=== PATIENT | female | born 1955 | race Asian ===

== ENCOUNTER 2017-11-08 13:11 | Emergency (ER) | payer BC ==
[2017-11-08 13:35] VITALS: BP 116/75
--- NOTE | 2017-11-08 13:35 | UC ---
Cardiac HPI - HPI Summary HPI Summary: Patient to urgent care with c/o chest discomfort and heaviness also has fatigue and SOB- - History of Current Complaint Hx Obtained From: Patient Onset/Duration: Sudden Onset, Lasting Days - 2, Worse Since - this day Timing: Constant Initial Severity: Moderate Current Severity: Moderate Pain Intensity: 2 Chest Pain Location: Mid Sternal, Lower Sternal Character: Tightness, Heaviness Aggravating Factor(s): Other - stress Alleviating Factor(s): Nothing Associated Signs & Symptoms: Positive: Chest Pain, Recent Stress, SOB <Karlee Padgett - Last Filed: 11/21/17 19:07> <Emili Saldana - Last Filed: 11/22/17 07:51> - History of Current Complaint Chief Complaint: UCCardiac Stated Complaint: CHEST PAIN Time Seen by Provider: 11/08/17 13:22 - Allergy/Home Medications Allergies/Adverse Reactions: Allergies Allergy/AdvReac Type Severity Reaction Status Date / Time MS Iodine [Iodine] Allergy Hives Verified 11/08/17 13:21 MS Penicillins [Penicillins] Allergy Anaphylatic Verified 11/08/17 13:21 Shock Home Medications: Home Medications NK [No Home Medications Reported] 11/08/17 [History Confirmed 11/08/17] PMH/Surg Hx/FS Hx/Imm Hx Previously Healthy: Yes - Surgical History Surgical History: Yes Surgery Procedure, Year, and Place: HYSTERECTOMY. LEFT BREAST BIOPSY -CLIP. 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 OTHER FACILITY - Family History Known Family History: Positive: None - Social History Occupation: Employed Full-time Lives: With Family Alcohol Use: None Substance Use Type: None Smoking Status (MU): Never Smoked Tobacco <Karlee Padgett - Last Filed: 11/21/17 19:07> Review of Systems Constitutional: Negative Skin: Negative Eyes: Negative ENT: Negative Respiratory: Shortness Of Breath Cardiovascular: Chest Pain Gastrointestinal: Negative Genitourinary: Negative Motor: Negative Neurovascular: Negative Musculoskeletal: Negative Neurological: Negative Psychological: Negative Is Patient Immunocompromised?: No All Other Systems Reviewed And Are Negative: Yes <Karlee Padgett - Last Filed: 11/21/17 19:07> Physical Exam Triage Information Reviewed: Yes Appearance: Well-Appearing, No Pain Distress, Well-Nourished Vital Signs Reviewed: Yes Eye Exam: Normal Eyes: Positive: Conjunctiva Clear ENT Exam: Normal ENT: Positive: Normal ENT inspection, Hearing grossly normal. Negative: Trismus , Muffled voice, Hoarse voice Dental Exam: Normal Neck exam: Normal Neck: Positive: Supple, Nontender, No Lymphadenopathy Respiratory Exam: Normal Respiratory: Positive: Chest non-tender, Lungs clear, Normal breath sounds, No respiratory distress, No accessory muscle use Cardiovascular Exam: Normal Cardiovascular: Positive: RRR, No Murmur, Pulses Normal, Brisk Capillary Refill Musculoskeletal Exam: Normal Musculoskeletal: Positive: Strength Intact, ROM Intact, No Edema Neurological Exam: Normal Neurological: Positive: Alert, Muscle Tone Normal Psychological Exam: Normal Skin Exam: Normal <Karlee Padgett - Last Filed: 11/21/17 19:07> Vital Signs: Initial Vital Signs Temp 98.5 F 11/08/17 13:22 Pulse 64 11/08/17 13:22 Resp 20 11/08/17 13:22 BP 116/75 11/08/17 13:22 Pulse Ox 98 11/08/17 13:22 <Emili Saldana - Last Filed: 11/22/17 07:51> Diagnostics - EKG Cardiac Rate: NL Cardiac Rhythm: Sinus: Normal Ectopy: None <Karlee Padgett - Last Filed: 11/21/17 19:07> - Assessment/Plan Course Of Treatment: asprin, ems to [facility] [place] for further evaluation and treatment - Clinical Impression Provider Diagnoses: Chest pressure/SOB - Physician Notifications Time Discussed With Above Provider: 13:40 Instructed by Provider To: Transfer <Karlee Padgett - Last Filed: 11/21/17 19:07> Discharge - Sign-Out/Discharge Documenting (check all that apply): Discharge/Admit/Transfer - Billing Disposition and Condition Condition: STABLE Disposition: EMTTHU <Karlee Padgett - Last Filed: 11/21/17 19:07> - Billing Disposition and Condition Condition: STABLE Disposition: EMTALA <Emili Saldana - Last Filed: 11/22/17 07:51> - Discharge Plan Condition: Stable [facility] Referrals: Jakob Cordon MD [Primary Care Provider] - Attestation Statement User Type: Provider - I was available for consult. This patient was seen by the [facility]. The patient was not presented to, seen by, or examined by me. -Chris <Emili Saldana - Last Filed: 11/22/17 07:51>
[2017-11-08] MEDS ORDERED: Aspirin 81 mg CHEW TAB* 81 MG TAB.CHEW PO ONE (13:36)
[2017-11-08] MEDS ORDERED: Aspirin 81 mg CHEW TAB* 81 MG TAB.CHEW ONE (13:37)
== END 2017-11-08 14:05 | disposition short-term general hospital (02) ==
LOC: UCEAST 13:11
DX: R07.89 Other chest pain (principal); R06.02 Shortness of breath; R53.83 Other fatigue; Z88.3 Allergy status to other anti-infective agents; Z88.0 Allergy status to penicillin
CPT/HCPCS: 93005; 99203; A9270-GY; G0463

== ENCOUNTER 2017-11-08 14:16 | Emergency (ER) | payer BC ==
[2017-11-08] MEDS ORDERED: Aspirin 81 mg CHEW TAB* 81 MG TAB.CHEW PO ONE (14:35)
[2017-11-08 14:53] LABS: ABS Basophils 0 10^3/ul (0-0.2); ABS Eosinophils 0.1 10^3/ul (0-0.6); ABS Monocytes 0.4 10^3/ul (0-0.8); ABS Neutrophils 3.2 10^3/ul (1.5-7.7); ABS Nucleated RBC 0 10^3/ul; Eosinophil % 2.2 % (0-6); Hematocrit 45 % (35-47); Lymphocyte % 35.2 % (25-47); Mean Corpuscular HGB Conc 34 g/dl (31-36); Mean Corpuscular Hemoglobin 29 pg (27-31); Mean Corpuscular Volume 87 fL (80-97); Nucleated Red Blood Cells % 0; Platelet Count 191 10^3/ul (150-450); Red Blood Count 5.14 10^6/ul (4.0-5.4); Red Cell Distribution Width 13 % (10.5-15); White Blood Count 5.7 10^3/ul (3.5-10.8)
[2017-11-08 15:00] LABS: INR 0.85 (0.77-1.02)
[2017-11-08 15:10] LABS: EGFR Non-African American 66.9 (>60)
--- NOTE | 2017-11-08 15:29 | RAD ---
Indication: Chest pain. Comparison: May 12, [address] and August 04, 2011 chest radiograph. Technique: Upright AP 1506 hours Report: Symmetric bilateral nipple shadows noted. LEFT epicardial fat pad noted. Clear lungs and pleural spaces. Negative for pneumothorax. The heart, pulmonary vasculature, and mediastinal contours are unremarkable. IMPRESSION: No evidence for acute intrathoracic disease.
[2017-11-08 17:55] VITALS: BP 110/71
--- NOTE | 2017-11-08 18:30 | ED ---
Fernando Corcoran Jennifer, scribed for Manjinder Morley MD on 11/08/17 at 1456 . HPI Chest Pain - HPI Summary HPI Summary: The patient is a 62 year old female who comes from [facility] with intermittent chest pain that began this morning. She described that she had tightness and heaviness a couple days ago, but it turned to sharp pains this morning. The patient explains the pain is located mid sternal and radiates to the back. She denies cough, fever, belching, heart burn, and chest pain in the ED. She adds that she felt like she hasnt been sleeping well in the past few days. - History of Current Complaint Time Seen by Provider: 11/08/17 14:23 Hx Obtained From: Patient Onset/Duration: Started Days Ago - couple days, Resolved - Denies pain in the ED , Worse Since - this morning Timing: Intermittent Initial Severity: Mild Current Severity: Mild Pain Intensity: 0 Pain Scale Used: 0-10 Numeric Chest Pain Location: Mid Sternal Chest Pain Radiates: Yes Chest Pain Radiates To:: Back Character: Heaviness, Sharp/Stabbing, Tightness Aggravating Factor(s): Nothing Alleviating Factor(s): Nothing Associated Signs and Symptoms: Positive: Other: - chest pain. NEGATIVE: cough, fever, belching, heart burn, chest pain in the ED, not sleeping well - Allergy/Home Medications Allergies/Adverse Reactions: Allergies Allergy/AdvReac Type Severity Reaction Status Date / Time MS Iodine [Iodine] Allergy Hives Verified 11/08/17 13:21 MS Penicillins [Penicillins] Allergy Anaphylatic Verified 11/08/17 13:21 Shock PMH/Surg Hx/FS Hx/Imm Hx Endocrine/Hematology History: Denies: Hx Diabetes Cardiovascular History: Reports: Hx Angina - stress indused, Hx Hypercholesterolemia Denies: Hx Hypertension, Hx Pacemaker/ICD GI History: Comment Only: Other GI Disorders - bloating/ gas History: Denies: Hx Renal Disease Comment Only: Other Problems/Disorders - hx of infections Sensory History: Denies: Hx Hearing Aid Psychiatric History: Denies: Hx Panic Disorder - Surgical History Surgery Procedure, Year, and Place: HYSTERECTOMY. LEFT BREAST BIOPSY -CLIP. 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 OTHER FACILITY Infectious Disease History: No Infectious Disease History: Denies: Traveled Outside the [place] in Last 30 Days - Family History Known Family History: Positive: Cardiac Disease - Father - Social History Alcohol Use: None Hx Substance Use: No Substance Use Type: Reports: None Hx Tobacco Use: No Smoking Status (MU): Never Smoked Tobacco Review of Systems Negative: Fever Positive: Chest Pain Negative: Cough Gastrointestinal: Negative - belching, heart burn Neurological: Other - hasn't been sleeping well All Other Systems Reviewed And Are Negative: Yes Physical Exam - Summary Physical Exam Summary: Appearance: Well appearing, no pain distress Skin: warm, dry, reflects adequate perfusion Head/face: normal Eyes: EOMI, CRESCENCIO ENT: moist mucous membranes, normal Neck: supple, non-tender Respiratory: CTA, breath sounds present Cardiovascular: RRR, pulses symmetrical Abdomen: non-tender, soft Bowel Sounds: present Musculoskeletal: normal, strength/ROM intact Neuro: normal, sensory motor intact, A&Ox3 Triage Information Reviewed: Yes Vital Signs On Initial Exam: Initial Vitals Temp Pulse Resp BP Pulse Ox 97.3 F 66 16 107/77 98 11/08/17 14:37 11/08/17 14:37 11/08/17 14:37 11/08/17 14:37 11/08/17 14:37 Vital Signs Reviewed: Yes Diagnostics - Vital Signs Vital Signs Temp Pulse Resp BP Pulse Ox 11/08/17 14:43 64 15 107/77 97 11/08/17 14:37 97.3 F 66 16 107/77 97 - Laboratory Lab Results: Lab Results 11/08/17 11/08/17 11/08/17 Range/Units 13:55 13:55 13:55 WBC 5.7 (3.5-10.8) 10^3/ul RBC 5.14 (4.0-5.4) 10^6/ul Hgb 15.0 (12.0-16.0) g/dl Hct 45 (35-47) % MCV 87 (80-97) fL MCH 29 (27-31) pg MCHC 34 (31-36) g/dl RDW 13 (10.5-15) % Plt Count 191 (150-450) 10^3/ul MPV 9.0 (7.4-10.4) um3 Neut % (Auto) 56.1 (38-83) % Lymph % (Auto) 35.2 (25-47) % Norman % (Auto) 6.2 (0-7) % Eos % (Auto) 2.2 (0-6) % Baso % (Auto) 0.3 (0-2) % Absolute Neuts (auto) 3.2 (1.5-7.7) 10^3/ul Absolute Lymphs (auto) 2.0 (1.0-4.8) 10^3/ul Absolute Monos (auto) 0.4 (0-0.8) 10^3/ul Absolute Eos (auto) 0.1 (0-0.6) 10^3/ul Absolute Basos (auto) 0 (0-0.2) 10^3/ul Absolute Nucleated RBC 0 10^3/ul Nucleated RBC % 0 INR (Anticoag Therapy) 0.85 (0.77-1.02) D-Dimer, Quantitative < 200 (Less Than 230) ng/mL Sodium 138 L (139-145) mmol/L Potassium 4.1 (3.5-5.0) mmol/L Chloride 105 (101-111) mmol/L Carbon Dioxide 25 (22-32) mmol/L Anion Gap 8 (2-11) mmol/L BUN 22 (6-24) mg/dL Creatinine 0.86 (0.51-0.95) mg/dL Est GFR ( Amer) 86.0 (>60) Est GFR (Non-Af Amer) 66.9 (>60) BUN/Creatinine Ratio 25.6 H (8-20) Glucose 93 (70-100) mg/dL Lactic Acid (0.5-2.0) mmol/L Calcium 9.2 (8.6-10.3) mg/dL Total Bilirubin 0.80 (0.2-1.0) mg/dL AST 18 (13-39) U/L ALT 13 (7-52) U/L Alkaline Phosphatase 72 (34-104) U/L Troponin I 0.00 (<0.04) ng/mL B-Natriuretic Peptide ( - 100) pg/mL Total Protein 6.8 (6.4-8.9) g/dL Albumin 4.3 (3.2-5.2) g/dL Globulin 2.5 (2-4) g/dL Albumin/Globulin Ratio 1.7 (1-3) TSH 1.21 (0.34-5.60) mcIU/mL 05/03/18 05/03/18 05/03/18 Range/Units 13:55 13:55 17:24 WBC (3.5-10.8) 10^3/ul RBC (4.0-5.4) 10^6/ul Hgb (12.0-16.0) g/dl Hct (35-47) % MCV (80-97) fL MCH (27-31) pg MCHC (31-36) g/dl RDW (10.5-15) % Plt Count (150-450) 10^3/ul MPV (7.4-10.4) um3 Neut % (Auto) (38-83) % Lymph % (Auto) (25-47) % Norman % (Auto) (0-7) % Eos % (Auto) (0-6) % Baso % (Auto) (0-2) % Absolute Neuts (auto) (1.5-7.7) 10^3/ul Absolute Lymphs (auto) (1.0-4.8) 10^3/ul Absolute Monos (auto) (0-0.8) 10^3/ul Absolute Eos (auto) (0-0.6) 10^3/ul Absolute Basos (auto) (0-0.2) 10^3/ul Absolute Nucleated RBC 10^3/ul Nucleated RBC % INR (Anticoag Therapy) (0.77-1.02) D-Dimer, Quantitative (Less Than 230) ng/mL Sodium (139-145) mmol/L Potassium (3.5-5.0) mmol/L Chloride (101-111) mmol/L Carbon Dioxide (22-32) mmol/L Anion Gap (2-11) mmol/L BUN (6-24) mg/dL Creatinine (0.51-0.95) mg/dL Est GFR ( Amer) (>60) Est GFR (Non-Af Amer) (>60) BUN/Creatinine Ratio (8-20) Glucose (70-100) mg/dL Lactic Acid 0.6 (0.5-2.0) mmol/L Calcium (8.6-10.3) mg/dL Total Bilirubin (0.2-1.0) mg/dL AST (13-39) U/L ALT (7-52) U/L Alkaline Phosphatase (34-104) U/L Troponin I 0.00 (<0.04) ng/mL B-Natriuretic Peptide 13 ( - 100) pg/mL Total Protein (6.4-8.9) g/dL Albumin (3.2-5.2) g/dL Globulin (2-4) g/dL Albumin/Globulin Ratio (1-3) TSH (0.34-5.60) mcIU/mL Result Diagrams: 11/08/17 13:55 11/08/17 13:55 Lab Statement: Any lab studies that have been ordered have been reviewed, and results considered in the medical decision making process. - Radiology CXR Xray Interpretation: No Acute Changes - No evidence for acute intrathoracic disease. Dr. Morley has reviewed this report. Radiology Interpretation Completed By: Radiologist - EKG 14:40 Cardiac Rate: NL EKG Rhythm: Sinus Rhythm - [address] Segment: Normal EKG Interpretation: Normal axis, intervals Chest Pain Course/Dx - Course Course Of Treatment: Patient with chest pain that is mild and nondescript. She has troponin negative 2. She recently was offered admission but had refused. Hospitalist had evaluated at the bedside and agrees to close follow-up after 2 negative troponins. Heart Scores 3. - Chest Pain Differential Diagnosis/HQI/PQRI: Acute OK, ACS, Angina, Chest Wall, GI Disease, Lower Respiratory Infection - Diagnoses Provider Diagnoses: Chest pain - Provider Notifications Discussed Care Of Patient With: Derek Kim Time Discussed With Above Provider: 15:17 Instructed by Provider To: Admit As Inpatient Discharge - Sign-Out/Discharge Documenting (check all that apply): Discharge/Admit/Transfer - Discharge Plan Condition: Improved Disposition: HOME Patient Education Materials: Chest Pain (ED) Referrals: Jakob Cordon MD [Primary Care Provider] - Additional Instructions: Call your doctor first thing in the morning -- schedule to be seen and have a stress test. Take a daily baby aspirin. Return if worse, new symptoms, or other concerns. - Billing Disposition and Condition Condition: IMPROVED Disposition: HOME The documentation as recorded by the Fernando yo Jennifer accurately reflects the service I personally performed and the decisions made by , Manjinder Morley MD.
== END 2017-11-08 18:38 | disposition home or self-care (01) ==
LOC: ED 14:16
DX: R07.9 Chest pain, unspecified (principal)
CPT/HCPCS: 36415; 71045; 80053; 83605; 83880; 84443; 84484; 85025; 85379; 85610; 93005; 99283